=== PATIENT | female | born 1950 | race Caucasian/White ===

== ENCOUNTER 2020-05-25 12:56 | Outpatient (CLI) | payer MEDICARE, MEDICAID, SELFPAY ==
--- NOTE | 2020-05-25 | CT_ITS ---
WS: [id number] CT ABDOMEN AND PELVIS WITH CONTRAST HISTORY: HYPOKALEMIA TECHNIQUE: Imaging performed of the abdomen and pelvis with IV contrast. Single phase imaging of the abdomen. Coronal and sagittal reformats are submitted. All CT scans at [facility] use at least one of these dose optimization techniques: automated exposure control; mA and/or kV adjustment per patient size (includes targeted exams where dose is matched to clinical indication); or iterativ e reconstruction. IV CONTRAST: Visipaque 320; 95 mL IV. Oral contrast: Yes. DLP: 1219.21 mGy.cm COMPARISON: 04/11/2018 Lower thorax: Lung bases are clear. Heart is normal size. Small hiatal hernia. Liver/biliary system: Normal size with no intrahepatic dilatation. Gallbladder: Status post cholecystectomy. Pancreas: Normal. Spleen: Splenic granulomata. Normal size. Adrenal glands: Normal. Right kidney: Normal. Left kidney: Large LEFT renal cyst measures 8.7 x 9.9 cm. No obstruction or solid mass. Aorta: Mild atherosclerosis with no aneurysm. Lymphadenopathy: None. Free fluid: None. GI tract: There are a few scattered diverticula without acute inflammation. No GI tract obstruction. Abdominal wall: Small umbilical hernia contains fat only. Pelvis: Normal. Bones: Increase in the lumbar lordosis. Mild anterior wedging of T12. CT/CT abdomen pelvis w con* [id number] IMPRESSION: 1. No acute abdominal or pelvic abnormalities. 2. Large LEFT renal cyst is unchanged. 3. Prior cholecystectomy. 4. Small hiatal hernia.
[2020-05-25 13:58] LABS: Blood Urea Nitrogen 7 mg/dL (8-23); Glomerular Filtration Rate 40.9 mL/min (90-130)
[2020-05-25] MEDS: iohexol 300 mg/mL 50 mL Btl IV (14:32)
[2020-05-25] MEDS: iodixanol 320 mg/mL 100mL Btl IV (14:50)
== END 2020-05-25 12:57 | disposition home or self-care (01) ==
LOC: RAD 13:02
PROVIDERS: PCP Urology; Visit Provider Nurse Practitioner Family
DX: E87.6 Hypokalemia (principal); K44.9 Diaphragmatic hernia without obstruction or gangrene; Z90.49 Acquired absence of other specified parts of digestive tract; N28.1 Cyst of kidney, acquired
CPT/HCPCS: 36415; 74177; 82565; 84520

== ENCOUNTER 2021-04-26 14:32 | Outpatient (CLI) | payer MEDICARE, MEDICAID, SELFPAY ==
--- NOTE | 2021-04-26 14:45 | US_ITS ---
WS: [id number] ULTRASOUND RENAL TECHNIQUE: Ultrasound examination of both kidneys. CLINICAL INFORMATION: STAGE 3 CHRONIC KIDNEY DZ COMPARISON: CT May 25, 2020 and ultrasound 11/11 FINDINGS: RIGHT: Right kidney is normal in size and appearance. Echogenicity: Normal. Cortical thickness: 1.3 cm; Normal. Hydronephrosis: None. Perinephric fluid: None. Right kidney measures: 11.1 cm x 5.3 cm x 4.1 cm. LEFT: Large left renal cyst measuring approximately 10.7 x 7.6 x 6.7 CM. Left kidney difficult to measure d ue to large renal cyst. Echogenicity: Normal. Cortical thickness: cm; Normal. Hydronephrosis: None. Perinephric fluid: None. Normal visualized aorta. Bladder is decompressed. US/US renal BI* [id number] IMPRESSION: 1. No hydronephrosis in either kidney. 2. Large simple left renal cyst measuring approximately 10.7 x 7.6 x 6.7 CM. T his appears unchanged since the prior studies. 3. Bladder is decompressed
== END 2021-04-26 14:33 | disposition home or self-care (01) ==
LOC: RAD 14:40
PROVIDERS: PCP Nurse Practitioner Family; Visit Provider Internal Medicine Nephrology
DX: N18.30 Chronic kidney disease, stage 3 unspecified (principal); N28.1 Cyst of kidney, acquired
CPT/HCPCS: 76770